=== PATIENT | female | born 1970 | race Caucasian/White ===

== ENCOUNTER 2017-09-12 03:07 | Emergency (ER) | payer OTHER ==
[~2017-09-12] VITALS: Ht 157.5 cm; Wt 54.4 kg
[~2017-09-12 03:07] MED LIST: ADDERALL 15 MG15 MG PO; ADDERALL 30 MG30 MG PO; APEDRA; AUGMENTIN 875-1 EACH PO; BACTRIM DS TAB1 EACH PO; CARISOPRODOL 3350 MG PO; CEPHALEXIN 500500 M3 PO; COMBIVENT INH; FENOFIBRATE160 MG PO; FLONASE 0.05%50 MCG INH; HYDROCODON-ACE1 EAC7 PO; HYDROCODONE-AP1 EAC6 PO; LANTUS INJECTION; LEVEMIR SQ; LEVEMIR SUBQ; LISINOPRIL-HCT1 EAC2 PO; MEDROLDOSEPACK PO; METFORMIN HCL500 MG; MOTION RELIEF25 MG PO; NEURONTIN600 MG PO; NORVASC 5 MG TAB5 MG PO; NOVOLOG100 UNIT/1 SUBQ; PROAIR HFA8.5 GM INH; PROMETHAZINE D480 ML PO; ROBAXIN 750 MG750 M1 PO; RONDEC-DM SYRU120 ML PO; SPIRIVA INH; SYMBICORT160 MCG/4. INH; XANAX 0.5 MG0.5 M1 PO; ZPAK PO
[2017-09-12] MEDS ORDERED: HYDROCODONE-AP1 EAC6 PO (03:51)
[2017-09-12 04:22] VITALS: BP 142/88
== END 2017-09-12 04:22 | disposition home or self-care (01) ==
LOC: M.ERS 03:07
DX: H16.002 Unspecified corneal ulcer, left eye (principal); F17.210 Nicotine dependence, cigarettes, uncomplicated; I10 Essential (primary) hypertension; F98.8 Other specified behavioral and emotional disorders with onset usually occurring in childhood and adolescence; E11.9 Type 2 diabetes mellitus without complications; J44.9 Chronic obstructive pulmonary disease, unspecified; Z88.5 Allergy status to narcotic agent; Z98.890 Other specified postprocedural states

== ENCOUNTER 2017-10-30 09:11 | Emergency (ER) | payer OTHER ==
[~2017-10-30] VITALS: Ht 157.5 cm; Wt 54.4 kg
[2017-10-30 09:18] VITALS: BP 162/95
[2017-10-30] MEDS ORDERED: CIPROFLOXIN HC2.5 M1 OPHTHALMIC (09:20)
[2017-10-30] MEDS ORDERED: NOVOLOG100 UNIT/1 SUBQ (09:20)
[2017-10-30] MEDS ORDERED: DUREZOL5 ML OPHTHALMIC (09:21)
[2017-10-30] MEDS ORDERED: NORCO 5-325 TA1 EACH PO (09:30)
[2017-10-30] MEDS ORDERED: BACTRIM DS TAB1 EACH PO (09:30)
== END 2017-10-30 09:37 | disposition home or self-care (01) ==
LOC: M.ERS 09:11
DX: Z71.1 Person with feared health complaint in whom no diagnosis is made (principal); I10 Essential (primary) hypertension; E11.9 Type 2 diabetes mellitus without complications; J44.9 Chronic obstructive pulmonary disease, unspecified; Z88.5 Allergy status to narcotic agent